=== PATIENT | male | born 1985 | race African-American/Black ===

== ENCOUNTER 2018-01-13 11:34 | Emergency (ER) | payer SELFPAY ==
[~2018-01-13] VITALS: Ht 188 cm; Wt 82.0 kg
[2018-01-13] MEDS ORDERED: IBUPROFEN 400MG TABLET PO ONE (13:15)
[2018-01-13 13:52] VITALS: BP 124/73
== END 2018-01-13 13:58 | disposition home or self-care (01) ==
LOC: ER 11:34
DX: M54.5 Low back pain (principal); M54.2 Cervicalgia; V43.52XA Car driver injured in collision with other type car in traffic accident, initial encounter; Y92.410 Unspecified street and highway as the place of occurrence of the external cause
CPT/HCPCS: 99283

== ENCOUNTER 2018-03-24 10:43 | Emergency (ER) | payer SELFPAY ==
[~2018-03-24] VITALS: Ht 188 cm; Wt 87.0 kg
[2018-03-24 11:36] LABS: BASOPHILS % 0.8 % (0.0-2.0); EOSINOPHILS % 0.5 % (0.0-5.0); HEMATOCRIT. 38.9 % (42.0-52.0); HEMOGLOBIN. 12.9 g/dL (14.0-18.0); MEAN CORPUSCULAR HEMOGLOBIN 26.7 pg (28.0-32.0); MEAN CORPUSCULAR VOLUME 80.6 fL (80.0-94.0); MEAN PLATELET VOLUME 8.5 fl (7.4-10.4); MONOCYTES % 8.8 % (2.0-8.0); NEUTROPHILS % 36.9 % (40.0-76.0); PLATELET 208 x1000/uL (130-400); RED BLOOD CELL COUNT 4.83 mill/uL (4.7-6.1); RED CELL DISTRIBUTION WIDTH 13.4 % (11.6-14.6)
[2018-03-24 11:44] LABS: CHLORIDE 107 mEq/L (98-107)
[2018-03-24 12:35] VITALS: BP 132/87
== END 2018-03-24 12:59 | disposition home or self-care (01) ==
LOC: ER 10:43
DX: R10.13 Epigastric pain (principal); R07.89 Other chest pain
CPT/HCPCS: 36415; 71045; 74018; 80053; 83690; 85025; 93005; 99285

== ENCOUNTER 2019-05-10 07:41 | Emergency (ER) | payer SELFPAY ==
[~2019-05-10] VITALS: Ht 188 cm; Wt 93.1 kg
[2019-05-10 09:00] VITALS: BP 118/62
[2019-05-10] MEDS ORDERED: MAGNESIUM/ALUMINUM HYDROXIDE/SIMETHICONE 30ML UDC PO ONE (09:00)
[2019-05-10] MEDS ORDERED: ONDANSETRON 4MG ODT PO ONE (09:00)
[2019-05-10] MEDS ORDERED: FAMOTIDINE 20MG TABLET PO ONE (09:00)
[2019-05-10] MEDS ORDERED: VISCOUS LIDOCAINE 2% 15 ML UDC PO ONE (09:00)
== END 2019-05-10 10:14 | disposition home or self-care (01) ==
LOC: ER 08:08
DX: R10.13 Epigastric pain (principal); R11.0 Nausea
CPT/HCPCS: 99284; Q0162

== ENCOUNTER 2019-07-06 23:57 | Emergency (ER) | payer SELFPAY ==
[~2019-07-06] VITALS: Ht 188 cm; Wt 91.0 kg
[2019-07-07] MEDS ORDERED: PREDNISONE 20MG TABLET PO SCH (01:52)
[2019-07-07 02:04] VITALS: BP 125/78
== END 2019-07-07 02:07 | disposition home or self-care (01) ==
LOC: ER 23:57
DX: J20.9 Acute bronchitis, unspecified (principal)
CPT/HCPCS: 99283; J7512

== ENCOUNTER 2021-04-28 09:59 | Emergency (ER) | payer SELFPAY ==
[~2021-04-28] VITALS: Ht 188 cm; Wt 92.0 kg
[2021-04-28 10:12] VITALS: BP 102/75
== END 2021-04-28 11:56 | disposition left against medical advice (07) ==
LOC: ER 09:59
DX: M54.9 Dorsalgia, unspecified (principal); Z53.21 Procedure and treatment not carried out due to patient leaving prior to being seen by health care provider

== ENCOUNTER 2023-07-25 09:30 | Emergency (ER) | payer MEDICAID ==
[~2023-07-25] VITALS: Ht 182.9 cm; Wt 100.0 kg
[2023-07-25 09:41] VITALS: O2SAT 98
[2023-07-25] MEDS ORDERED: IBUP-2029 MT (10:00)
[2023-07-25 10:16] VITALS: BP 148/83; PULSE 84; RESP 20; TEMP 98
== END 2023-07-25 10:18 | disposition home or self-care (01) ==
LOC: ER 09:30
DX: L02.211 Cutaneous abscess of abdominal wall (principal)
CPT/HCPCS: 99282